=== PATIENT | male | born 1955 | race Caucasian/White ===

== ENCOUNTER 2018-07-03 15:14 | Emergency (ER) | payer OTHER, BC ==
[~2018-07-03] VITALS: Ht 185.4 cm; Wt 102.1 kg
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
[2018-07-03 16:25] VITALS: BP 155/90
== END 2018-07-03 17:00 | disposition home or self-care (01) ==
LOC: ER 15:14
DX: S06.0X0A Concussion without loss of consciousness, initial encounter (principal); M54.2 Cervicalgia; R42 Dizziness and giddiness; R41.0 Disorientation, unspecified; M48.02 Spinal stenosis, cervical region; V53.5XXA Driver of pick-up truck or van injured in collision with car, pick-up truck or van in traffic accident, initial encounter; Y93.89 Activity, other specified; Y92.410 Unspecified street and highway as the place of occurrence of the external cause; Y99.8 Other external cause status
CPT/HCPCS: 70450; 72125; 99284-25